=== PATIENT | male | born 2005 | race African-American/Black ===

== ENCOUNTER 2025-02-24 03:06 | Emergency (ER) | payer OTHER ==
[~2025-02-24] VITALS: Ht 182.8 cm; Wt 61.2 kg
[2025-02-24] MEDS ORDERED: NAPROXEN250 MG PO (04:46)
== END 2025-02-24 05:13 | disposition home or self-care (01) ==
LOC: ED 03:06
DX: S40.021A Contusion of right upper arm, initial encounter (principal); V39.9XXA Occupant (driver) (passenger) of three-wheeled motor vehicle injured in unspecified traffic accident, initial encounter; Y93.89 Activity, other specified; Y92.410 Unspecified street and highway as the place of occurrence of the external cause; Y99.8 Other external cause status